=== PATIENT | male | born 1985 | race Caucasian/White ===

== ENCOUNTER → 2024-09-18 | Emergency (ER) | payer OTHER ==
[~2024-09-18] VITALS: Ht 180.3 cm; Wt 99.8 kg
[~2024-09-18] MED LIST: AMOX-430 PO; AMOX/CLAVULANATE 875 MG TABLET ONE; GUAI120L56 PO; GUAIFENESIN/D-METHORPHAN HB 5 ML UDC ONE
[2024-09-18] MEDS: AMOX/CLAVULANATE 875 MG TABLET PO ONE (22:27)
[2024-09-18] MEDS: GUAIFENESIN/D-METHORPHAN HB 5 ML UDC PO ONE (22:29)
[2024-09-18] MEDS: CODEINE/PROMETHAZINE HCL 5 ML UDC PO ONE (23:07)
[2024-09-18 23:21] VITALS: BP 138/91; TEMP 98.7; O2SAT 98
== END | disposition home or self-care (01) ==
LOC: ER 20:41
DX: B34.9 Viral infection, unspecified (principal); E11.9 Type 2 diabetes mellitus without complications; I10 Essential (primary) hypertension; Z20.822 Contact with and (suspected) exposure to COVID-19
CPT/HCPCS: 71045-TC